=== PATIENT | female | born 1955 | race Hispanic/Latino ===

== ENCOUNTER 2017-11-13 18:57 | Emergency (ER) | payer MEDICARE ==
[2017-11-13] MEDS ORDERED: CEFTRIAXONE SODIUM 1 GM ONE (19:16)
[2017-11-13] MEDS ORDERED: LIDOCAINE HCL-MPF 1% 2ML VIAL ONE (19:16)
[2017-11-13 19:37] LABS: BASOPHILS % (AUTO) 0.8 % (0.0-5.0); EOSINOPHILS % (AUTO) 0.7 % (0.0-8.0); HEMATOCRIT 39.1 % (36-48); LYMPHOCYTES % (AUTO) 26.5 % (21.0-51.0); MEAN CORPUSCULAR HEMOGLOBIN 32.9 pg (27.0-33.0); MEAN CORPUSCULAR HGB CONC 35.7 g/dL (32.0-36.0); MEAN CORPUSCULAR VOLUME 92.1 fL (79-99); MONOCYTES % (AUTO) 8.1 % (3.0-13.0); NEUTROPHILS % (AUTO) 63.9 % (40.0-77.0); PLATELET COUNT (AUTO) 232 K/uL (130-400); RED BLOOD CELL COUNT(AUTO) 4.24 MIL/uL (4.00-5.50); RED CELL DISTRIBUTION WIDTH 13.8 % (11.0-15.5); WHITE BLOOD COUNT (AUTO) 9.2 K/uL (4.8-10.8)
== END 2017-11-13 19:47 | disposition home or self-care (01) ==
LOC: EDH 18:57
DX: M25.522 Pain in left elbow (principal); I10 Essential (primary) hypertension; E78.5 Hyperlipidemia, unspecified; Z98.890 Other specified postprocedural states
CPT/HCPCS: 36415; 73080; 85025; 96372; 99285; J0696; J3490

== ENCOUNTER 2018-05-02 18:03 | Emergency (ER) | payer MEDICARE ==
[2018-05-02 18:51] LABS: RAPID GROUP A STREP NEGATIVE (NEGATIVE)
== END 2018-05-02 19:18 | disposition home or self-care (01) ==
LOC: EDH 18:03
DX: J06.9 Acute upper respiratory infection, unspecified (principal); H66.91 Otitis media, unspecified, right ear; Z87.891 Personal history of nicotine dependence
CPT/HCPCS: 87804; 87880

== ENCOUNTER 2023-11-09 22:01 | Emergency (ER) | payer OTHER, MEDICARE ==
[~2023-11-09] VITALS: Ht 160 cm; Wt 68.9 kg
[2023-11-09 22:28] LABS: BASOPHILS # (AUTO) 0.06 K/uL (0.00-0.20); BASOPHILS % (AUTO) 0.8 % (0.0-5.0); EOSINOPHILS # (AUTO) 0.09 K/uL (0.00-0.70); EOSINOPHILS % (AUTO) 1.2 % (0.0-8.0); HEMATOCRIT 41.3 % (36-48); IMMATURE GRANULOCYTE ABSOLUTE 0.06 K/uL (0-1); LYMPHOCYTES # (AUTO) 2.4 K/uL (1.0-4.8); LYMPHOCYTES % (AUTO) 33.1 % (21.0-51.0); MEAN CORPUSCULAR HEMOGLOBIN 31.7 pg (27.0-33.0); MEAN CORPUSCULAR HGB CONC 34.9 g/dL (32.0-36.0); MONOCYTES # (AUTO) 0.7 K/uL (0.1-1.0); MONOCYTES % (AUTO) 9.4 % (3.0-13.0); NEUTROPHILS # (AUTO) 3.9 K/uL (1.8-7.7); NEUTROPHILS % (AUTO) 54.7 % (40.0-77.0); PLATELET COUNT (AUTO) 222 K/uL (130-400); RED BLOOD CELL COUNT(AUTO) 4.54 MIL/uL (4.00-5.50); RED CELL DISTRIBUTION WIDTH 13.3 % (11.0-15.5); WHITE BLOOD COUNT (AUTO) 7.2 K/uL (4.8-10.8)
[2023-11-09 22:35] LABS: CREATININE 0.9 mg/dL (0.5-1.0); POTASSIUM 4.2 mmol/L (3.5-5.1)
[2023-11-09 22:43] LABS: ALBUMIN 3.6 g/dL (3.5-5.0); BILIRUBIN,TOTAL 1.1 mg/dL (0.2-1.0); TOTAL PROTEIN, SERUM 6.6 g/dL (6.0-8.3)
[2023-11-09] MEDS: SOLU-MEDROL 125MG VIAL IVP ONE (22:55)
[2023-11-09] MEDS: DiphenhydrAMINE HCL 50 MG/ML VIAL IV ONE (22:55)
[2023-11-09] MEDS: FAMOTIDINE 20MG VIAL IV ONE (22:55)
[2023-11-09 22:59] LABS: B-TYPE NATRIURETIC PEPTIDE 6 pg/mL (0-100)
[2023-11-09 23:59] LABS: APPEARANCE,URINE CLEAR (CLEAR); BILIRUBIN,URINE NEGATIVE (NEGATIVE); COLOR,URINE COLORLESS (YELLOW); GLUCOSE, URINE (UA) NEGATIVE (NEGATIVE); KETONES,URINE NEGATIVE (NEGATIVE); LEUKOCYTE ESTERASE ,URINE NEGATIVE Leu/uL (NEGATIVE); NITRATE,URINE NEGATIVE (NEGATIVE); OCCULT BLOOD,URINE NEGATIVE (NEGATIVE); PROTEIN,URINE NEGATIVE (NEGATIVE); UROBILINOGEN,URINE 0.2 mg/dL (0.2-1.0)
[2023-11-10 00:02] LABS: ADD UA MICROSCOPIC NO
[2023-11-10] MEDS ORDERED: FAMO-136 PO (00:30)
[2023-11-10] MEDS ORDERED: DIPH50 PO (00:30)
[2023-11-10] MEDS ORDERED: PRED20TA3 PO (00:30)
[2023-11-10 01:40] VITALS: BP 128/60; PULSE 64; RESP 18; O2SAT 99
== END 2023-11-10 01:41 | disposition home or self-care (01) ==
LOC: EDH 22:01
DX: R07.89 Other chest pain (principal); R06.02 Shortness of breath; T37.0X5A Adverse effect of sulfonamides, initial encounter; I10 Essential (primary) hypertension; E78.00 Pure hypercholesterolemia, unspecified; Z88.2 Allergy status to sulfonamides; Y92.89 Other specified places as the place of occurrence of the external cause
CPT/HCPCS: 99285; 84484 ×2; 80053; 83880; 85025; 81003; 36415; 71045; 96374; 96375; 93005; J1200; J3490; J2930

== ENCOUNTER 2024-05-10 21:10 | Inpatient (IN) | payer MEDICARE ==
[~2024-05-10] VITALS: Ht 160 cm; Wt 76.5 kg
[~2024-05-10 21:10] MED LIST: DIPH50 PO; FAMO-136 PO; PRED20TA3 PO
[2024-05-10 21:27] LABS: APPEARANCE,URINE CLEAR (CLEAR); BILIRUBIN,URINE NEGATIVE (NEGATIVE); COLOR,URINE LIGHT-YELLOW (YELLOW); GLUCOSE, URINE (UA) NEGATIVE (NEGATIVE); KETONES,URINE NEGATIVE (NEGATIVE); LEUKOCYTE ESTERASE ,URINE 75 Leu/uL (NEGATIVE); NITRATE,URINE NEGATIVE (NEGATIVE); PH,URINE 6.5 (5.0-8.0); PROTEIN,URINE NEGATIVE (NEGATIVE); UROBILINOGEN,URINE 0.2 mg/dL (0.2-1.0)
[2024-05-10 21:29] LABS: ADD UA MICROSCOPIC YES
[2024-05-10 21:31] LABS: MUCUS,URINE RARE LPF (None Seen); SQUAMOUS EPITHELIAL CELL,UR RARE /HPF (0-2)
[2024-05-10 21:36] LABS: BASOPHILS # (AUTO) 0.02 K/uL (0.00-0.20); BASOPHILS % (AUTO) 0.3 % (0.0-5.0); EOSINOPHILS # (AUTO) 0.06 K/uL (0.00-0.70); EOSINOPHILS % (AUTO) 0.9 % (0.0-8.0); HEMATOCRIT 41.8 % (36-48); IMMATURE GRANULOCYTE ABSOLUTE 0.01 K/uL (0-1); LYMPHOCYTES # (AUTO) 0.6 K/uL (1.0-4.8); LYMPHOCYTES % (AUTO) 8.8 % (21.0-51.0); MEAN CORPUSCULAR HGB CONC 33.7 g/dL (32.0-36.0); MEAN CORPUSCULAR VOLUME 94.8 fL (79-99); MONOCYTES # (AUTO) 0.4 K/uL (0.1-1.0); MONOCYTES % (AUTO) 6.3 % (3.0-13.0); NEUTROPHILS # (AUTO) 5.9 K/uL (1.8-7.7); NEUTROPHILS % (AUTO) 83.6 % (40.0-77.0); PLATELET COUNT (AUTO) 163 K/uL (130-400); RED BLOOD CELL COUNT(AUTO) 4.41 MIL/uL (4.00-5.50)
[2024-05-10] MEDS: LIDOCAINE HCL 2% VISCOUS 15 ML UDCUP PO ONE (21:40)
[2024-05-10] MEDS: MAG/ALUM/SIMETH 30 ML UDCUP PO ONE (21:40)
[2024-05-10] MEDS: DICYCLOMINE HCL 10 MG/5 ML ML PO ONE (21:40)
[2024-05-10] MEDS: 0.9%NACL 1000ML 1,000 ML IV ONE (21:40)
[2024-05-10] MEDS: PANTOPrazole 40 MG/VIAL IVP ONE (21:40)
[2024-05-10] MEDS: ondanSETRON 4MG INJ IVP ONE (21:40)
[2024-05-10 21:47] LABS: CREATININE 0.8 mg/dL (0.5-1.0); POTASSIUM 3.4 mmol/L (3.5-5.1)
[2024-05-10 21:58] LABS: ALBUMIN 3.8 g/dL (3.5-5.0); BILIRUBIN,TOTAL 2.3 mg/dL (0.2-1.0)
[2024-05-10] MEDS: cefTRIAXone 1G VIAL IVPB ONE (23:19)
[2024-05-10] MEDS: morPHINE 4 MG SYG IVP ONE (23:20)
[2024-05-11] VITALS (7 sets, daily range): BP systolic 108–146; BP diastolic 63–83; PULSE 60–67; RESP 18; TEMP 98.1–98.2; O2SAT 98
[2024-05-11] MEDS: hydroMORPHone 0.5 MG SYG (0.5MG/0.5ML) IVP PRN
[2024-05-11] MEDS: 1/2 NS 1000ML 1,000 ML IV SCH (00:01)
[2024-05-11] MEDS ORDERED: CETI10TA57 PO (02:24)
[2024-05-11] MEDS ORDERED: PANT40TA54 PO (02:24)
[2024-05-11] MEDS ORDERED: LISI2.5T13 PO (02:24)
[2024-05-11 04:32] LABS: BASOPHILS # (AUTO) 0.01 K/uL (0.00-0.20); BASOPHILS % (AUTO) 0.2 % (0.0-5.0); EOSINOPHILS # (AUTO) 0.01 K/uL (0.00-0.70); EOSINOPHILS % (AUTO) 0.2 % (0.0-8.0); IMMATURE GRANULOCYTE ABSOLUTE 0.03 K/uL (0-1); LYMPHOCYTES # (AUTO) 0.3 K/uL (1.0-4.8); LYMPHOCYTES % (AUTO) 4.2 % (21.0-51.0); MEAN CORPUSCULAR HEMOGLOBIN 31.4 pg (27.0-33.0); MEAN CORPUSCULAR HGB CONC 33.4 g/dL (32.0-36.0); MEAN CORPUSCULAR VOLUME 94.1 fL (79-99); MONOCYTES # (AUTO) 0.5 K/uL (0.1-1.0); MONOCYTES % (AUTO) 7.2 % (3.0-13.0); NEUTROPHILS # (AUTO) 5.8 K/uL (1.8-7.7); NEUTROPHILS % (AUTO) 87.7 % (40.0-77.0); PLATELET COUNT (AUTO) 160 K/uL (130-400); RED BLOOD CELL COUNT(AUTO) 4.04 MIL/uL (4.00-5.50); WHITE BLOOD COUNT (AUTO) 6.7 K/uL (4.8-10.8)
[2024-05-11 04:59] LABS: ALBUMIN 3.2 g/dL (3.5-5.0); BILIRUBIN,TOTAL 2.3 mg/dL (0.2-1.0); CREATININE 0.7 mg/dL (0.5-1.0); POTASSIUM 3.7 mmol/L (3.5-5.1); TOTAL PROTEIN, SERUM 6.1 g/dL (6.0-8.3)
[2024-05-11] MEDS: ondanSETRON 4MG INJ IVP PRN (09:48)
[2024-05-11] MEDS: PANTOPrazole 40 MG/VIAL IVP SCH (09:48)
[2024-05-11] MEDS: LISINOPRIL 2.5 MG TABLET PO SCH (09:48)
[2024-05-11] MEDS: ENOXAPARIN SODIUM 40 MG/0.4 ML SYRINGE SQ SCH (09:49)
[2024-05-11] MEDS: cefTRIAXone 1G VIAL IVPB SCH (13:37)
[2024-05-11] MEDS: acetaMINOPHEN 325 MG TAB PO PRN (13:38)
[2024-05-11] MEDS: ceTIRIzine HCL 5 MG TABLET PO SCH (20:44)
[2024-05-12] VITALS (7 sets, daily range): BP systolic 105–140; BP diastolic 61–76; PULSE 54–80; RESP 16–18; TEMP 97.6–98.6; O2SAT 96–97
[2024-05-12 05:17] LABS: HEMATOCRIT 35.3 % (36-48); MEAN CORPUSCULAR HEMOGLOBIN 31.6 pg (27.0-33.0); MEAN CORPUSCULAR HGB CONC 34.3 g/dL (32.0-36.0); MEAN CORPUSCULAR VOLUME 92.2 fL (79-99); RED BLOOD CELL COUNT(AUTO) 3.83 MIL/uL (4.00-5.50); RED CELL DISTRIBUTION WIDTH 12.9 % (11.0-15.5); WHITE BLOOD COUNT (AUTO) 3.2 K/uL (4.8-10.8)
[2024-05-12 05:26] LABS: ALBUMIN 2.8 g/dL (3.5-5.0); BILIRUBIN,TOTAL 1.2 mg/dL (0.2-1.0); CREATININE 0.8 mg/dL (0.5-1.0); POTASSIUM 3.7 mmol/L (3.5-5.1); TOTAL PROTEIN, SERUM 5.6 g/dL (6.0-8.3)
[2024-05-13 00:03] VITALS: BP 120/75; PULSE 55; RESP 18; TEMP 98
[2024-05-13 03:45] VITALS: BP 107/64; PULSE 56; RESP 18; TEMP 98.1
[2024-05-13 08:00] VITALS: BP 114/60; PULSE 60; RESP 18; TEMP 97.9
[2024-05-13 08:47] VITALS: O2SAT 94
== END 2024-05-13 11:50 | disposition home or self-care (01) | DRG 439 ==
LOC: EDH 21:10 → EDHIP 23:03 → 3CH 05-11 01:27
PROVIDERS: ADMIT Internal Medicine; ATTEND Internal Medicine
DX: K85.90 Acute pancreatitis without necrosis or infection, unspecified (principal); N39.0 Urinary tract infection, site not specified; E78.00 Pure hypercholesterolemia, unspecified; I10 Essential (primary) hypertension; Z82.49 Family history of ischemic heart disease and other diseases of the circulatory system; E87.6 Hypokalemia; Z90.49 Acquired absence of other specified parts of digestive tract; Z88.2 Allergy status to sulfonamides; Z79.899 Other long term (current) drug therapy
CPT/HCPCS: 36415; 71045; 74181; 76700; 80053; 80061; 81001; 82150; 82550; 83690; 84478; 84484; 85025; 85027; 87086; 93005; 96361; 96365; 96372; 96375; G0378; J0696; J1171; J1650; J2270; J2405; J2470; J7030; S8037